=== PATIENT | male | born 1945 | race Caucasian/White ===

== ENCOUNTER 2019-01-08 07:39 | Day surgery (SDC) | payer BC, OTHER ==
[~2019-01-08] VITALS: Ht 160 cm; Wt 80.3 kg
[2019-01-08 07:30] VITALS: BP 125/83
[~2019-01-08 07:39] MED LIST: AMIO200T40 PO; APIX2.5T PO; ASPI-1071 PO; ATOR20TA PO; CARV-50 PO; FOLI0.8T19 PO; FOLI1TAB16 PO; HYDR-4383 PO; LIDOcaine 1% 30ml preserv. free vial IJ STA; NITR0.4T51 SL
[2019-01-08 08:00] VITALS: BP 130/85
[2019-01-08 09:00] VITALS: BP 130/85
[2019-01-08 09:05] VITALS: BP 125/84
[2019-01-08] MEDS ORDERED: AMIO200T40 PO (09:11)
[2019-01-08] MEDS ORDERED: APIX2.5T PO (09:14)
[2019-01-08 09:15] VITALS: BP 126/83
[2019-01-08] MEDS ORDERED: ASPI-1265 PO (09:15)
[2019-01-08] MEDS ORDERED: CARV6.252 PO (09:18)
[2019-01-08 09:30] VITALS: BP 125/80
[2019-01-08] MEDS ORDERED: FOLI1TAB16 PO (11:55)
[2019-01-08] MEDS ORDERED: PRAV80TA3 PO (11:56)
[2019-01-08] MEDS ORDERED: FURO40TA4 PO (11:57)
[2019-01-08] MEDS ORDERED: VIT1TABL48 PO (11:59)
== END 2019-01-08 09:45 ==
LOC: SSTAY O 07:39
PROVIDERS: ATTEND Radiology Diagnostic Radiology
DX: Z45.2 Encounter for adjustment and management of vascular access device (principal); I25.10 Atherosclerotic heart disease of native coronary artery without angina pectoris; Z79.899 Other long term (current) drug therapy; Z79.82 Long term (current) use of aspirin
CPT/HCPCS: 36589; J2001

== ENCOUNTER 2019-05-04 10:33 | Inpatient (IN) | payer MEDICARE, BC ==
[2019-05-04] VITALS (11 sets, daily range): BP systolic 88–159; BP diastolic 60–113
[~2019-05-04] VITALS: Ht 172.7 cm; Wt 96.3 kg
[~2019-05-04 10:33] MED LIST changes: -AMIO200T40 PO; +AMIO200T61 PO; -ASPI-1071 PO; +ASPI-1265 PO; -ATOR20TA PO; -CARV-50 PO; +CARV6.252 PO; -FOLI0.8T19 PO; +FURO40TA4 PO; -HYDR-4383 PO; -LIDOcaine 1% 30ml preserv. free vial IJ STA; -NITR0.4T51 SL; +PRAV80TA3 PO; +VIT1TABL48 PO
[2019-05-04 11:22] LABS: BASOPHILS % (AUTO) 0.2 % (0-1); EOSINOPHILS # (AUTO) 0.1 X10'3 (0-0.9); HEMATOCRIT 35.2 % (42.0-52.0); HEMOGLOBIN 11.9 g/dl (14.0-17.9); LYMPHOCYTES # (AUTO) 0.4 X10'3 (1.1-4.8); LYMPHOCYTES % (AUTO) 5.5 % (21-51); MEAN CORPUSCULAR HEMOGLOBIN 30.8 PG (27.0-31.0); MEAN CORPUSCULAR HGB CONC 33.8 g/dL (33.0-36.5); MEAN CORPUSCULAR VOLUME 91.1 FL (78-98); MEAN PLATELET VOLUME 9.4 FL (7.4-10.4); MONOCYTES # (AUTO) 0.4 X10'3 (0-0.9); MONOCYTES % (AUTO) 6.1 % (2-12); NEUTROPHILS # (AUTO) 6.2 X10'3 (1.8-7.7); NEUTROPHILS % (AUTO) 87.2 % (42-75); PLATELET COUNT 65 X10'3 (140-440); RED BLOOD COUNT 3.86 X10'6 (4.70-6.10); RED CELL DISTRIBUTION WIDTH 13.4 % (11.5-14.5); WHITE BLOOD COUNT 7.1 X10'3 (4.5-11.0)
[2019-05-04 11:34] LABS: PARTIAL THROMBOPLASTIN TIME 39 SECONDS (22-32)
[2019-05-04 11:35] LABS: ALANINE AMINOTRANSFERASE 30 U/L (12-78); ALBUMIN 2.7 G/DL (3.4-5.0); ALBUMIN/GLOBULIN RATIO 0.6 (1.1-1.5); ALKALINE PHOSPHATASE 57 IU/L (46-116); ANION GAP 14 (8-16); ASPARTATE AMINO TRANSFERASE 25 U/L (10-37); BLOOD UREA NITROGEN 51 MG/DL (7-18); BUN/CREATININE RATIO 19.5 (5.4-32.0); CHLORIDE 102 MMOL/L (99-107); CREATININE 2.61 MG/DL (0.60-1.10); GLUCOSE 123 MG/DL (70-104); POTASSIUM 3.6 MMOL/L (3.5-5.1); SODIUM 137 MMOL/L (135-145); TOTAL CARBON DIOXIDE 21.1 MMOL/L (24-32); TOTAL PROTEIN 7.1 G/DL (6.4-8.2); eGFR 24 ML/MIN
[2019-05-04 12:01] LABS: CLARITY,URINE CLOUDY (Clear); COLOR,URINE YELLOW (Yellow); GLUCOSE, URINE NEGATIVE (Neg); KETONES,URINE NEGATIVE (Neg); LEUKOCYTE ESTERASE ,URINE MODERATE (Neg); NITRITES, URINE POSITIVE (Neg); OCCULT BLOOD,URINE LARGE (Neg); PROTEIN,URINE 100 mg/dl (Neg); UROBILINOGEN,URINE 0.2 E.U/dL (0.2-1.0)
[2019-05-04 12:04] LABS: UA COLLECTION TYPE CLN CATCH MIDSTREAM
[2019-05-04 12:10] LABS: SQUAMOUS EPITHELIAL CELL,UR FEW /LPF (FEW); WBC,URINE TNTC /HPF (0-4)
[2019-05-04 12:11] LABS: BACTERIA,URINE 3+ /HPF (Neg)
--- NOTE | 2019-05-04 12:21 | NUR ---
PT IS IN BED , FLUSHED IV, NS 1L GIVEN DONE FROM EMS, HE IS STABLE, GTTING RESTLESS
[2019-05-04] MEDS ORDERED: CefTRIAXone/D5W-Rocephin 1gm 50 ML IV ONE (12:35)
[2019-05-04] MEDS ORDERED: normal saline 1000ML IV soln IV ONE (12:40)
[2019-05-04] MEDS ORDERED: mag hydrox/Alum hydrox/simeth 30ml oral suspension PO PRN (12:45)
[2019-05-04] MEDS ORDERED: magnesium hydroxide 30ml (MOM) UD suspension PO PRN (12:45)
[2019-05-04] MEDS ORDERED: acetaminophen 325mg tablet PO PRN (12:45)
[2019-05-04] MEDS ORDERED: ondansetron/PF 4mg/2ml inj IV PRN (12:45)
[2019-05-04] MEDS ORDERED: RIVA15TA PO (13:08)
[2019-05-04] MEDS ORDERED: SERT100T PO (13:08)
[2019-05-04] MEDS ORDERED: POTA-82 PO (13:08)
[2019-05-04] MEDS ORDERED: LISI10TA4 PO (13:08)
[2019-05-04] MEDS: normal saline 1000ml 1,000 ML IV SCH ×2 (14:26→21:08)
[2019-05-04 14:34] LABS: URINE AMPHETAMINE SCREEN NEGATIVE (Neg); URINE BARBITUATE SCREEN NEGATIVE (Neg); URINE BENZODIAZEPINES SCREEN NEGATIVE (Neg); URINE CANNABINOID SCREEN NEGATIVE (Neg); URINE COCAINE SCREEN NEGATIVE (Neg); URINE METHADONE SCREEN NEGATIVE (Neg); URINE OPIATE SCREEN NEGATIVE (Neg); URINE PHENCYCLIDINE SCREEN NEGATIVE (Neg)
--- NOTE | 2019-05-04 15:01 | NUR ---
Received report from ED by Abeba ROGERS.
--- NOTE | 2019-05-04 16:24 | NUR ---
patient arrived to unit confused, c/o of feeling cold, shallow respiration. V/S 192/122, temp 100.5, HR 117 A fib, resp 24. Dr Hunt notified, new orders to transfer pt to PCU with Paradise diaz. Nursing Ct Manager called, charge nurse aware, awaiting for room at PCU.
[2019-05-04] MEDS ORDERED: sevoflurane 250ml liquid IH ONE (16:30)
[2019-05-04] MEDS ORDERED: diltiazem-NS 100mg/100ml 125 ML IV SCH (16:30)
--- NOTE | 2019-05-04 17:12 | NUR ---
Patient report given to Nic ROGERS at [facility]
[2019-05-04] MEDS: diltiazem-NS 100mg/100ml 100 ML IV SCH (17:43)
--- NOTE | 2019-05-04 17:52 | NUR ---
Patient arrived tp PCU at 1725. Patient was transferred to bed and RN skin chaeck was done. Bedside monitoring initiated, medications in process per MD order. Will continue to monitor
--- NOTE | 2019-05-04 18:41 | NUR ---
Problems reprioritized. Patient report given, questions answered & plan of care reviewed with Dotty ROGERS.
--- NOTE | 2019-05-04 18:48 | NUR ---
[place]rient[place] documentation: I have reviewed and agree with interventions, assessments performed and documented by Carmina ROGERS. [place] Medication Administration: For this medication-pass time frame, medication were reviewed, dispensed, administered and documented per hospital policy by Carmina ROGERS.
[2019-05-04] MEDS: heparin, porcine 5000 units/ml vial SQ SCH (20:00)
[2019-05-04] MEDS ORDERED: amiodarone 200mg tablet PO SCH (21:00)
--- NOTE | 2019-05-04 22:52 | NUR ---
Heparin @05/04 was held due to history and physical MD noting to hold anticoags because of thrombocytopenia secondary to sepsis.
--- NOTE | 2019-05-04 22:52 | NUR ---
Patient in room PCU 3027. I have received report from KEN De La Rosa and had the opportunity to ask questions and assume patient care.
[2019-05-05] VITALS (22 sets, daily range): BP systolic 97–157; BP diastolic 38–102
[2019-05-05] MEDS: metroNIDAZOLE-Flagyl 500mg/NS 100 ML IV SCH ×3 (02:10→20:20)
--- NOTE | 2019-05-05 03:34 | NUR ---
MD was called and notified about positive blood culture of gram negative rods from aerobic bottles that were drawn on 05/04.
[2019-05-05 05:21] LABS: ALBUMIN 2.2 G/DL (3.4-5.0); ANION GAP 11 (8-16); BLOOD UREA NITROGEN 50 MG/DL (7-18); CALCIUM 8.5 MG/DL (8.5-10.1); CHLORIDE 108 MMOL/L (99-107); GLUCOSE 127 MG/DL (70-104); POTASSIUM 3.7 MMOL/L (3.5-5.1); SODIUM 142 MMOL/L (135-145); TOTAL CARBON DIOXIDE 22.9 MMOL/L (24-32); eGFR 25 ML/MIN
[2019-05-05 06:28] LABS: BASOPHILS % (AUTO) 0.1 % (0-1); EOSINOPHILS # (AUTO) 0.1 X10'3 (0-0.9); EOSINOPHILS % (AUTO) 1.7 % (0-6); HEMATOCRIT 30.7 % (42.0-52.0); HEMOGLOBIN 10.5 g/dl (14.0-17.9); LYMPHOCYTES # (AUTO) 0.5 X10'3 (1.1-4.8); LYMPHOCYTES % (AUTO) 6.6 % (21-51); MEAN CORPUSCULAR HEMOGLOBIN 31.1 PG (27.0-31.0); MEAN CORPUSCULAR HGB CONC 34.2 g/dL (33.0-36.5); MEAN PLATELET VOLUME 9.7 FL (7.4-10.4); MONOCYTES # (AUTO) 0.5 X10'3 (0-0.9); MONOCYTES % (AUTO) 7.3 % (2-12); NEUTROPHILS # (AUTO) 6.4 X10'3 (1.8-7.7); NEUTROPHILS % (AUTO) 84.3 % (42-75); RED BLOOD COUNT 3.37 X10'6 (4.70-6.10); RED CELL DISTRIBUTION WIDTH 13.6 % (11.5-14.5); WHITE BLOOD COUNT 7.5 X10'3 (4.5-11.0)
[2019-05-05 06:30] LABS: PLATELET COUNT 50 X10'3 (140-440)
--- NOTE | 2019-05-05 06:41 | NUR ---
Patient in room [place] [id number]. I have received report from and had the opportunity to ask questions and assume patient care. Addendum: 05/05/19 at 0642 by Carmina Raman RN Patient in room [place] [address]. I have received report from Dotty and had the opportunity to ask questions and assume patient care.
[2019-05-05] MEDS: heparin, porcine 5000 units/ml vial SQ SCH ×2 (06:42→20:00)
--- NOTE | 2019-05-05 06:49 | NUR ---
Problems reprioritized. Patient report given, questions answered & plan of care reviewed with Estrella ROGERS and Carmina ROGERS.
--- NOTE | 2019-05-05 07:24 | NUR ---
Rm [id number], Leonard. Does patient need to be NPO for CT this am. Please call. Thank you.
[2019-05-05] MEDS: CefTRIAXone 2gm/D5W 50ml 50 ML IV SCH (08:02)
[2019-05-05] MEDS: atorvastatin 20mg tablet PO SCH (08:02)
[2019-05-05] MEDS: folic acid 1mg tablet PO SCH (08:02)
[2019-05-05] MEDS: potassium chloride 10mEq ER tablet PO SCH (08:03)
[2019-05-05] MEDS: normal saline 1000ml 1,000 ML IV SCH ×2 (08:03→20:20)
[2019-05-05] MEDS: sertraline 50mg tablet PO SCH (08:03)
[2019-05-05] MEDS: diltiazem-NS 100mg/100ml 100 ML IV SCH (10:57)
[2019-05-05] MEDS ORDERED: AMIO200T27 PO (11:20)
[2019-05-05] MEDS ORDERED: CARV6.252 PO (11:20)
[2019-05-05] MEDS: carVEDilol 3.125mg tablet PO SCH ×2 (12:21→20:37)
--- NOTE | 2019-05-05 13:42 | NUR ---
Paged Dr. Hunt regarding blood culture lab results PAGER ID: [phone] MESSAGE: [id number] - Emmanuel: JAMES: Two anaerobic bottles tested positive for gram negative rods, thanks! Carmina [phone]
[2019-05-05] MEDS ORDERED: iohexol 300 MG/1 ML 10ml vial ONE (15:53)
[2019-05-05] MEDS ORDERED: iohexol 300 MG/1 ML 50ml polymer ONE (15:54)
[2019-05-05] MEDS ORDERED: ringers solution, lacted 1,000 ML IV SCH (16:02)
[2019-05-05] MEDS ORDERED: meperidine/PF 25mg/ml syringe IV PRN ×3 (16:05)
[2019-05-05] MEDS ORDERED: ondansetron/PF 4mg/2ml inj IV PRN (16:05)
[2019-05-05] MEDS ORDERED: morphine 4 MG/ML inj SYRINge IV PRN ×2 (16:05)
[2019-05-05] MEDS ORDERED: proCHLORperazine 10 MG/2 ml inj IV PRN (16:05)
[2019-05-05] MEDS ORDERED: fentaNYL/PF 50MCG/1 ML 2ML syringe ONE (16:25)
[2019-05-05] MEDS ORDERED: propofol inj 20 ML IV ONE (16:26)
--- NOTE | 2019-05-05 17:11 | NUR ---
Received from OR via BED, accompanied by Anesthesiologist DR BURTON and report given by Anesthesiologist. PT DROWSY, NO S/S OF DISTRESS/DISCOMFORT. Addendum: 05/05/19 at 1727 by Lisette Booker RN Amended: Links added.
[2019-05-05] MEDS ORDERED: levoFLOXACIN-Levaquin 500mg/D5 100 ML IV ONE (17:40)
--- NOTE | 2019-05-05 18:01 | NUR ---
Report called to receiving nurse. Transferred via BED, NO Belongings, RECEIVING RN AT BEDSIDE TO RECEIVE PT, BLL, CALL LIGHT GIVEN, SIDE RAILS UP X2. Special Issues communicated to receiving nurse. YES. Addendum: 05/05/19 at 1812 by Lisette Bokoer RN Amended: Links added.
--- NOTE | 2019-05-05 18:29 | NUR ---
Patient in room PCU 3027. I have received report from Leslye ROGERS and had the opportunity to ask questions and assume patient care.
--- NOTE | 2019-05-05 18:30 | NUR ---
Problems reprioritized. Patient report given, questions answered & plan of care reviewed with KEN Storm.
--- NOTE | 2019-05-05 18:31 | NUR ---
[place] Medication Administration: For this medication-pass time frame, medication were reviewed, dispensed, administered and documented per hospital policy by Carmina ROGERS . [place]ee documentation: I have reviewed and agree with interventions, assessments performed and documented by Carmina ROGERS.
[2019-05-05] MEDS: lactobacillus rhamnosus 10,000 MMU CELLS/CAPSULE PO SCH (20:37)
[2019-05-05] MEDS: amiodarone 100mg tablet PO SCH (20:37)
--- NOTE | 2019-05-05 23:22 | NUR ---
MD called and notified about patient's red finger tips after the left ureter stent procedure today. Recovery said the red finger tips could be caused from sepsis and a sepsis emboli could possibly lodge and cause necrosis in the fingers. Will monitor closely. Cap refill is quick <2secs.
[2019-05-06] VITALS (15 sets, daily range): BP systolic 109–144; BP diastolic 61–82
[2019-05-06] MEDS: normal saline 1000ml 1,000 ML IV SCH (04:45)
[2019-05-06 05:39] LABS: BASOPHILS % (AUTO) 0.2 % (0-1); EOSINOPHILS % (AUTO) 0.4 % (0-6); HEMATOCRIT 28.5 % (42.0-52.0); HEMOGLOBIN 9.6 g/dl (14.0-17.9); LYMPHOCYTES # (AUTO) 0.6 X10'3 (1.1-4.8); LYMPHOCYTES % (AUTO) 10.7 % (21-51); MEAN CORPUSCULAR HEMOGLOBIN 30.8 PG (27.0-31.0); MEAN CORPUSCULAR HGB CONC 33.8 g/dL (33.0-36.5); MEAN CORPUSCULAR VOLUME 91.2 FL (78-98); MEAN PLATELET VOLUME 10.2 FL (7.4-10.4); MONOCYTES # (AUTO) 0.4 X10'3 (0-0.9); MONOCYTES % (AUTO) 6.7 % (2-12); NEUTROPHILS # (AUTO) 4.9 X10'3 (1.8-7.7); RED BLOOD COUNT 3.13 X10'6 (4.70-6.10); RED CELL DISTRIBUTION WIDTH 13.9 % (11.5-14.5)
[2019-05-06 05:46] LABS: ALBUMIN 1.9 G/DL (3.4-5.0); ANION GAP 10 (8-16); BLOOD UREA NITROGEN 57 MG/DL (7-18); BUN/CREATININE RATIO 27.4 (5.4-32.0); CALCIUM 8.4 MG/DL (8.5-10.1); CHLORIDE 107 MMOL/L (99-107); CREATININE 2.08 MG/DL (0.60-1.10); GLUCOSE 107 MG/DL (70-104); POTASSIUM 3.3 MMOL/L (3.5-5.1); SODIUM 140 MMOL/L (135-145); TOTAL CARBON DIOXIDE 22.8 MMOL/L (24-32); eGFR 31 ML/MIN
--- NOTE | 2019-05-06 05:48 | NUR ---
05/06/19 0550: called and notified about some bright red blood coming out of urine into the condom catheter. Blood is possibly coming out in stool as well since the dry flow was wet with bright red blood. The area covered was approximately the size covering the bottom of his buttocks. said to report to day hospitalist. Will tell AM nurse to pass it on.
[2019-05-06 05:53] LABS: PLATELET COUNT 42 X10'3 (140-440)
--- NOTE | 2019-05-06 06:33 | NUR ---
Problems reprioritized. Patient report given, questions answered & plan of care reviewed with Halley Osuna RN. She was notified about the blood coming out in urine and stool and of the critical platelet value.
--- NOTE | 2019-05-06 06:48 | NUR ---
Patient in room PCU 3027. I have received report from Dotty ROGERS and had the opportunity to ask questions and assume patient care. Was informed of platelet count of 42 at 0455, paged Dr Hunt regarding critical lab value. All patient's needs met at this time.
--- NOTE | 2019-05-06 06:49 | NUR ---
Paged Dr Hunt MESSAGE: Re: Rohan Valle Rm [id number], plt count was 42 at 0455. Thanks Halley [phone]
[2019-05-06] MEDS: heparin, porcine 5000 units/ml vial SQ SCH ×2 (08:00→20:00)
[2019-05-06] MEDS: atorvastatin 20mg tablet PO SCH (08:25)
[2019-05-06] MEDS: potassium chloride 10mEq ER tablet PO SCH (08:25)
[2019-05-06] MEDS: folic acid 1mg tablet PO SCH (08:25)
[2019-05-06] MEDS: sertraline 50mg tablet PO SCH (08:26)
[2019-05-06] MEDS: lactobacillus rhamnosus 10,000 MMU CELLS/CAPSULE PO SCH ×2 (08:26→20:09)
[2019-05-06] MEDS: CefTRIAXone 2gm/D5W 50ml 50 ML IV SCH (08:26)
[2019-05-06] MEDS: carVEDilol 3.125mg tablet PO SCH ×2 (08:26→20:10)
[2019-05-06] MEDS ORDERED: furosemide 40mg/4ml inj IV ONE ×2 (08:45→14:35)
--- NOTE | 2019-05-06 09:03 | NUR ---
Paged Dr Hunt PAGER ID: [phone] MESSAGE: Re Rohan Valle Rm [id number]. K+ 3.3, pt got 40meq PO, giving Lasix, can you please order K+ replace protocol? Thank you Halley [phone]
--- NOTE | 2019-05-06 09:17 | NUR ---
Paged Dr Hunt MESSAGE: Re: [id number] Rohan Valle, can you please sign the platelet consent? I will come to you. Thank you Halley [phone]
[2019-05-06] MEDS: metroNIDAZOLE-Flagyl 500mg/NS 100 ML IV SCH ×4 (09:22→23:19)
[2019-05-06] MEDS ORDERED: potassium CL 10mEq/100ml bag 100 ML IV PRN (12:30)
[2019-05-06] MEDS ORDERED: magnesium 4gm in 100ml NS 100 ML IV PRN (12:30)
[2019-05-06] MEDS ORDERED: potassium Cl 20 mEq SR tablet PO PRN (12:30)
[2019-05-06] MEDS ORDERED: magnesium Cl slow-release 64mg tablet PO PRN (12:30)
[2019-05-06] MEDS ORDERED: magnesium 2GM in 50ml NS 50 ML IV PRN (12:30)
[2019-05-06] MEDS: potassium Cl 20 mEq SR tablet PO PRN ×3 (12:38→20:09)
--- NOTE | 2019-05-06 12:46 | NUR ---
I held the lasix due to his potassium being 3.3.
--- NOTE | 2019-05-06 14:12 | NUR ---
Patient tolerated platelet transfusion with no complications.
--- NOTE | 2019-05-06 14:41 | NUR ---
Dr. Hunt at the nurses station where primary RN Halley has informed him that she held the Lasix because the patients K+ is 3.3. Dr. Hunt has given new orders: Give the Lasix and replace electrolytes per protocol. Will place a new order for Lasix 40mg PIV once and place orders for electrolyte replacement per protocol. Primary RN to dispense meds and monitor the patient.
--- NOTE | 2019-05-06 18:30 | NUR ---
Patient in room PCU 3027. I have received report from Halley ROGERS and had the opportunity to ask questions and assume patient care.
--- NOTE | 2019-05-06 18:30 | NUR ---
Problems reprioritized. Patient report given, questions answered & plan of care reviewed with Jacqueline ROGERS. All patient's needs met at this time.
[2019-05-06] MEDS: amiodarone 100mg tablet PO SCH (20:09)
[2019-05-07] VITALS (7 sets, daily range): BP systolic 113–168; BP diastolic 85–104
[2019-05-07 05:59] LABS: ALBUMIN 2.3 G/DL (3.4-5.0); ANION GAP 13 (8-16); BLOOD UREA NITROGEN 50 MG/DL (7-18); BUN/CREATININE RATIO 25.1 (5.4-32.0); CALCIUM 8.6 MG/DL (8.5-10.1); CHLORIDE 106 MMOL/L (99-107); CREATININE 1.99 MG/DL (0.60-1.10); GLUCOSE 93 MG/DL (70-104); POTASSIUM 3.3 MMOL/L (3.5-5.1); SODIUM 141 MMOL/L (135-145); TOTAL CARBON DIOXIDE 21.6 MMOL/L (24-32); eGFR 33 ML/MIN
[2019-05-07 06:00] LABS: BASOPHILS % (AUTO) 0.1 % (0-1); EOSINOPHILS # (AUTO) 0.1 X10'3 (0-0.9); EOSINOPHILS % (AUTO) 0.8 % (0-6); HEMOGLOBIN 10.9 g/dl (14.0-17.9); LYMPHOCYTES # (AUTO) 0.6 X10'3 (1.1-4.8); LYMPHOCYTES % (AUTO) 6.9 % (21-51); MEAN CORPUSCULAR HEMOGLOBIN 30.5 PG (27.0-31.0); MEAN CORPUSCULAR VOLUME 89.6 FL (78-98); MONOCYTES # (AUTO) 0.5 X10'3 (0-0.9); MONOCYTES % (AUTO) 6.3 % (2-12); NEUTROPHILS # (AUTO) 7.1 X10'3 (1.8-7.7); NEUTROPHILS % (AUTO) 85.9 % (42-75); PLATELET COUNT 88 X10'3 (140-440); RED BLOOD COUNT 3.57 X10'6 (4.70-6.10); RED CELL DISTRIBUTION WIDTH 13.9 % (11.5-14.5); WHITE BLOOD COUNT 8.3 X10'3 (4.5-11.0)
--- NOTE | 2019-05-07 06:16 | NUR ---
Problems reprioritized. Patient report given, questions answered & plan of care reviewed with Kumar ROGERS.
--- NOTE | 2019-05-07 06:27 | NUR ---
Patient in room PCU 3027. I have received report from KEN Phillips and had the opportunity to ask questions and assume patient care.
[2019-05-07] MEDS: folic acid 1mg tablet PO SCH (07:43)
[2019-05-07] MEDS: carVEDilol 3.125mg tablet PO SCH ×2 (07:44→19:25)
[2019-05-07] MEDS: potassium chloride 10mEq ER tablet PO SCH (07:44)
[2019-05-07] MEDS: lactobacillus rhamnosus 10,000 MMU CELLS/CAPSULE PO SCH ×2 (07:44→19:25)
[2019-05-07] MEDS: sertraline 50mg tablet PO SCH (07:44)
[2019-05-07] MEDS: atorvastatin 20mg tablet PO SCH (07:44)
[2019-05-07] MEDS: CefTRIAXone 2gm/D5W 50ml 50 ML IV SCH (07:45)
[2019-05-07] MEDS: metroNIDAZOLE-Flagyl 500mg/NS 100 ML IV SCH (08:29)
--- NOTE | 2019-05-07 10:55 | NUR ---
PAGER ID: [phone] MESSAGE: [phone] Rohan Valle do you want the heparin given or held. Received platelet transfusion yesterday plt up to 88 from 42. KEN Heath Ext [phone]
[2019-05-07] MEDS: heparin, porcine 5000 units/ml vial SQ SCH ×2 (11:39→19:26)
--- NOTE | 2019-05-07 18:13 | NUR ---
Problems reprioritized. Patient report given, questions answered & plan of care reviewed with KEN Matamoros.
[2019-05-07] MEDS: potassium Cl 20 mEq SR tablet PO PRN (19:25)
[2019-05-07] MEDS ORDERED: normal saline 1000ml 1,000 ML IVB ONE (20:04)
[2019-05-07] MEDS ORDERED: diltiazem 5mg/ml 5ml inj. IV ONE (20:05)
--- NOTE | 2019-05-07 20:05 | NUR ---
Patient's HR sustaining 130s-140s while resting in bed. Patient's BP 141/99 and RR 28 with a temp of 101.1 axillary. Prescribed dose of PRN Tylenol given and call placed to Dr. De La Cruz. Received order for one time IVP of Cardizem 10mg and to give patient 1L bolus of NS even though he does have a history of CHF.
[2019-05-07] MEDS: amiodarone 100mg tablet PO SCH (21:23)
[2019-05-08] VITALS (23 sets, daily range): BP systolic 110–184; BP diastolic 78–114
--- NOTE | 2019-05-08 03:04 | NUR ---
Patient's HR sustaining in the 120s, current BP 144/78. Called Dr. De La Cruz and received order to place patient on Cardizem drip@5mg/hr
[2019-05-08] MEDS: diltiazem-NS 100mg/100ml 100 ML IV SCH ×2 (03:35→04:58)
--- NOTE | 2019-05-08 04:30 | NUR ---
Patient's HR remaining in the 120s despite starting on Cardizem drip. Called Dr. De La Cruz and received an order to give a 10mg IVP of Cardizem and to increase the drip to 10mg/hr
[2019-05-08] MEDS ORDERED: diltiazem 5mg/ml 5ml inj. IV ONE ×3 (04:55→23:20)
[2019-05-08 05:22] LABS: BASOPHILS % (AUTO) 0.1 % (0-1); EOSINOPHILS # (AUTO) 0.1 X10'3 (0-0.9); EOSINOPHILS % (AUTO) 1.5 % (0-6); HEMATOCRIT 30.9 % (42.0-52.0); HEMOGLOBIN 10.6 g/dl (14.0-17.9); LYMPHOCYTES # (AUTO) 0.7 X10'3 (1.1-4.8); LYMPHOCYTES % (AUTO) 7.8 % (21-51); MEAN CORPUSCULAR HEMOGLOBIN 30.5 PG (27.0-31.0); MEAN CORPUSCULAR HGB CONC 34.2 g/dL (33.0-36.5); MEAN CORPUSCULAR VOLUME 89.2 FL (78-98); MEAN PLATELET VOLUME 10.6 FL (7.4-10.4); MONOCYTES # (AUTO) 0.4 X10'3 (0-0.9); MONOCYTES % (AUTO) 4.5 % (2-12); NEUTROPHILS % (AUTO) 86.1 % (42-75); PLATELET COUNT 90 X10'3 (140-440); RED BLOOD COUNT 3.47 X10'6 (4.70-6.10); RED CELL DISTRIBUTION WIDTH 13.8 % (11.5-14.5); WHITE BLOOD COUNT 9.3 X10'3 (4.5-11.0)
[2019-05-08 06:16] LABS: LARGE PLATELETS FEW; PLATELET ESTIMATE DECREASED
[2019-05-08 06:17] LABS: ALBUMIN 2.2 G/DL (3.4-5.0); ANION GAP 13 (8-16); BLOOD UREA NITROGEN 41 MG/DL (7-18); CALCIUM 8.6 MG/DL (8.5-10.1); CHLORIDE 107 MMOL/L (99-107); CREATININE 1.71 MG/DL (0.60-1.10); GLUCOSE 93 MG/DL (70-104); POTASSIUM 3.4 MMOL/L (3.5-5.1); SODIUM 140 MMOL/L (135-145); TOTAL CARBON DIOXIDE 20.5 MMOL/L (24-32); eGFR 39 ML/MIN
--- NOTE | 2019-05-08 06:32 | NUR ---
Problems reprioritized. Patient report given, questions answered & plan of care reviewed with Celia ROGERS.
[2019-05-08] MEDS: heparin, porcine 5000 units/ml vial SQ SCH (08:00)
[2019-05-08] MEDS: CefTRIAXone 2gm/D5W 50ml 50 ML IV SCH (08:23)
[2019-05-08] MEDS: atorvastatin 20mg tablet PO SCH (08:23)
[2019-05-08] MEDS: potassium chloride 10mEq ER tablet PO SCH (08:24)
[2019-05-08] MEDS: folic acid 1mg tablet PO SCH (08:24)
[2019-05-08] MEDS: lactobacillus rhamnosus 10,000 MMU CELLS/CAPSULE PO SCH ×2 (08:24→20:45)
[2019-05-08] MEDS: carVEDilol 3.125mg tablet PO SCH (08:24)
[2019-05-08] MEDS: sertraline 50mg tablet PO SCH (08:25)
[2019-05-08] MEDS ORDERED: carvedilol 6.25mg tablet PO ONE (09:05)
--- NOTE | 2019-05-08 15:36 | NUR ---
Initial: Pt admit with sepsis secondary to UTI s/p ureteral stent placement. Blood cultures positive for E.coli per MD notes. Pt currently on a heart healthy diet documented with average 50% PO intake up to 75% at breakfast and lunch today. Pt seen at bedside provided with written and verbal protein education and alternative heart healthy menu to broaden food options. Pt agrees to yogurt QD at lunch, d/w dietary. Pt endorses a good appetite and denies food allergies, difficulty chewing/swallowing, or constipation/diarrhea. [facility] 05/07. Will continue to follow. Recommendations: 1) Continue heart healthy diet 2) Yogurt QD at lunch 3) Encourage PO intake; honor food preferences 4) Bowel care 5) Wt per rx Addendum: 05/08/19 at [address] Amended: Links added.
--- NOTE | 2019-05-08 15:40 | NUR ---
Recieved Pt. Placed into bed, PICC line R Upper arm patient, Alert and appropriate, WICC placed for comfort. HOB 30 degrees.
--- NOTE | 2019-05-08 15:51 | NUR ---
Problems reprioritized. Patient report given, questions answered & plan of care reviewed with Davonte ROGERS.
--- NOTE | 2019-05-08 18:20 | NUR ---
Problems reprioritized. Patient report given, questions answered & plan of care reviewed with Shiloh ROGERS.
--- NOTE | 2019-05-08 18:39 | NUR ---
Paged Dr. Hunt because patient's HR has been sustaining 130s-140s for at least 2 hours since the Cardizem drip had been d/c'd. Latest BP is 139/110. MD called back and stated he wants patient's Coreg given for the HR. Informed MD that last night the Coreg had no effect on the HR to which MD stated that the patient became hypotensive on the drip so he doesn't want him back on it. Informed MD that patient never was hypotensive last night and was instead given a fluid bolus for high HR, fever, & high RR with known infection. MD insisted that patient should never have been given fluids and he instead insists that the Coreg be the only thing given. Will give Coreg early and continue to monitor
[2019-05-08] MEDS: carVEDilol 12.5mg tablet PO SCH (19:00)
[2019-05-08] MEDS: potassium Cl 20 mEq SR tablet PO PRN (19:00)
[2019-05-08] MEDS ORDERED: carVEDilol 12.5mg tablet PO SCH (20:00)
[2019-05-08] MEDS: amiodarone 100mg tablet PO SCH (20:45)
[2019-05-08] MEDS: rivaroxaban 15mg tablet PO SCH (20:46)
--- NOTE | 2019-05-08 22:00 | NUR ---
Patient's HR remains in the 130s despite giving PO Coreg. Current BP 142/94. Called Dr. De La Cruz and received order for a one time 10mg IVP of Cardizem
--- NOTE | 2019-05-08 23:15 | NUR ---
Patient's HR remains in the 130s despite IVP of Cardizem. BP is 148/95. Called Dr. De La Cruz and received order to repeat Cardizem IVP bolus of 10mg and then start patient on Cardizem drip @ 5mg/hr
[2019-05-08] MEDS ORDERED: diltiazem-NS 100mg/100ml 100 ML IV SCH (23:20)
[2019-05-09] VITALS (30 sets, daily range): BP systolic 95–164; BP diastolic 66–99
[2019-05-09] MEDS ORDERED: diltiazem 5mg/ml 5ml inj. IV ONE (01:00)
[2019-05-09] MEDS: diltiazem-NS 100mg/100ml 100 ML IV SCH ×3 (01:07→17:54)
--- NOTE | 2019-05-09 01:10 | NUR ---
Spoke to Dr. De La Cruz because patient's HR remains 120s. BP currently 151/88. Received order to give another IVP bolus of Cardizem 10mg and increase the drip to 10mg/hr
[2019-05-09 05:25] LABS: BASOPHILS % (AUTO) 0.1 % (0-1); EOSINOPHILS # (AUTO) 0.2 X10'3 (0-0.9); EOSINOPHILS % (AUTO) 2.2 % (0-6); HEMOGLOBIN 9.9 g/dl (14.0-17.9); LYMPHOCYTES # (AUTO) 0.9 X10'3 (1.1-4.8); LYMPHOCYTES % (AUTO) 8.4 % (21-51); MEAN CORPUSCULAR HEMOGLOBIN 30.9 PG (27.0-31.0); MEAN CORPUSCULAR HGB CONC 34.3 g/dL (33.0-36.5); MEAN CORPUSCULAR VOLUME 90.2 FL (78-98); MEAN PLATELET VOLUME 10.6 FL (7.4-10.4); MONOCYTES # (AUTO) 0.4 X10'3 (0-0.9); MONOCYTES % (AUTO) 4.1 % (2-12); NEUTROPHILS # (AUTO) 8.8 X10'3 (1.8-7.7); NEUTROPHILS % (AUTO) 85.2 % (42-75); PLATELET COUNT 99 X10'3 (140-440); RED BLOOD COUNT 3.21 X10'6 (4.70-6.10); RED CELL DISTRIBUTION WIDTH 13.9 % (11.5-14.5); WHITE BLOOD COUNT 10.4 X10'3 (4.5-11.0)
[2019-05-09 05:47] LABS: ALBUMIN 2.2 G/DL (3.4-5.0); ANION GAP 10 (8-16); BLOOD UREA NITROGEN 35 MG/DL (7-18); CALCIUM 8.5 MG/DL (8.5-10.1); CHLORIDE 107 MMOL/L (99-107); CREATININE 1.52 MG/DL (0.60-1.10); GLUCOSE 98 MG/DL (70-104); POTASSIUM 3.5 MMOL/L (3.5-5.1); SODIUM 139 MMOL/L (135-145); TOTAL CARBON DIOXIDE 21.6 MMOL/L (24-32); eGFR 45 ML/MIN
--- NOTE | 2019-05-09 06:04 | NUR ---
Problems reprioritized. Patient report given, questions answered & plan of care reviewed with Diana ROGERS.
--- NOTE | 2019-05-09 06:06 | NUR ---
Patient in room PCU 3027. I have received report from Shiloh ROGERS and had the opportunity to ask questions and assume patient care.
[2019-05-09] MEDS: carVEDilol 12.5mg tablet PO SCH ×2 (07:13→20:49)
[2019-05-09] MEDS: lactobacillus rhamnosus 10,000 MMU CELLS/CAPSULE PO SCH ×2 (07:13→20:49)
[2019-05-09] MEDS: sertraline 50mg tablet PO SCH (07:13)
[2019-05-09] MEDS: potassium chloride 10mEq ER tablet PO SCH (07:13)
[2019-05-09] MEDS: atorvastatin 20mg tablet PO SCH (07:13)
[2019-05-09] MEDS: folic acid 1mg tablet PO SCH (07:13)
[2019-05-09] MEDS: CefTRIAXone 2gm/D5W 50ml 50 ML IV SCH (07:14)
[2019-05-09] MEDS ORDERED: rivaroxaban 15mg tablet PO SCH (07:30)
--- NOTE | 2019-05-09 11:06 | NUR ---
Problems reprioritized. Patient report given, questions answered & plan of care reviewed with Davonte ROGERS.
--- NOTE | 2019-05-09 18:00 | NUR ---
Patient in room PCU 3027. I have received report from Davonte ROGERS and had the opportunity to ask questions and assume patient care.
[2019-05-09] MEDS: amiodarone 100mg tablet PO SCH (20:49)
[2019-05-09] MEDS: rivaroxaban 15mg tablet PO SCH (20:50)
[2019-05-10] VITALS (9 sets, daily range): BP systolic 106–146; BP diastolic 56–89
--- NOTE | 2019-05-10 02:00 | NUR ---
Patient in room PCU 3027. I have received report from Kaye ROGERS and had the opportunity to ask questions and assume patient care.
--- NOTE | 2019-05-10 03:37 | NUR ---
SINUS RHYTHM Patient converted to sinus rhythm, MD De La Cruz notified, Cardizem discontinued per md order, will continue to monitor.
--- NOTE | 2019-05-10 06:15 | NUR ---
Patient in room PCU 3027. I have received report from KEN Ochoa and had the opportunity to ask questions and assume patient care.
--- NOTE | 2019-05-10 07:17 | NUR ---
Problems reprioritized. Patient report given, questions answered & plan of care reviewed with Estrella ROGERS.
[2019-05-10] MEDS: carVEDilol 12.5mg tablet PO SCH (08:12)
[2019-05-10] MEDS: CefTRIAXone 2gm/D5W 50ml 50 ML IV SCH (08:12)
[2019-05-10] MEDS: folic acid 1mg tablet PO SCH (08:12)
[2019-05-10] MEDS: atorvastatin 20mg tablet PO SCH (08:13)
[2019-05-10] MEDS: sertraline 50mg tablet PO SCH (08:13)
[2019-05-10] MEDS: lactobacillus rhamnosus 10,000 MMU CELLS/CAPSULE PO SCH (08:13)
[2019-05-10] MEDS: potassium chloride 10mEq ER tablet PO SCH (08:13)
--- NOTE | 2019-05-10 12:25 | NUR ---
Called report to [facility]. Report given to ANIRUDH Hackett. all questions answered.
--- NOTE | 2019-05-10 13:06 | NUR ---
Patient picked up by pete and transported off unit via wheel chair.
== END 2019-05-10 13:05 | DRG 853 ==
LOC: ER 10:33 → ED HOLD 12:53 → PCU 3S 17:25
PROVIDERS: ADMIT Family Medicine; ATTEND Hospitalist
PROC: BT1F1ZZ Fluoroscopy of Left Kidney, Ureter and Bladder using Low Osmolar Contrast (ICD-10-PCS; 2019-05-05)
PROC: 0T778DZ Dilation of Left Ureter with Intraluminal Device, Via Natural or Artificial Opening Endoscopic (ICD-10-PCS; principal; 2019-05-05 16:23)
PROC: 30233R1 Transfusion of Nonautologous Platelets into Peripheral Vein, Percutaneous Approach (ICD-10-PCS; 2019-05-06)
DX: A41.9 Sepsis, unspecified organism (principal); G93.41 Metabolic encephalopathy; I13.0 Hypertensive heart and chronic kidney disease with heart failure and stage 1 through stage 4 chronic kidney disease, or unspecified chronic kidney disease; N13.6 Pyonephrosis; I50.22 Chronic systolic (congestive) heart failure; B96.20 Unspecified Escherichia coli [E. coli] as the cause of diseases classified elsewhere; D69.59 Other secondary thrombocytopenia; E87.6 Hypokalemia; I25.10 Atherosclerotic heart disease of native coronary artery without angina pectoris; I48.91 Unspecified atrial fibrillation; N18.9 Chronic kidney disease, unspecified; N40.0 Benign prostatic hyperplasia without lower urinary tract symptoms; I95.9 Hypotension, unspecified
CPT/HCPCS: 36415; 36430; 71045; 74176; 76000; 76937; 80048; 80053; 80305; 81001; 83605; 84132; 84145; 85025; 85610; 85730; 86885; 87040; 87070; 87075; 87077; 87081; 87088; 87186; 97110; 97116; 97163; 97530; 99285; A4618; C1758; C1769; C2617; G0378; J0696; J1644; J1940; J1956; J2704; J3010; J3490; J7030; J7120; P9035; Q9967

== ENCOUNTER 2020-03-08 07:05 | Day surgery (SDC) | payer MEDICARE, BC ==
[2020-03-07 09:50] LABS: BASOPHILS % (AUTO) 0.5 % (0-1); EOSINOPHILS # (AUTO) 0.8 X10'3 (0-0.9); EOSINOPHILS % (AUTO) 8.9 % (0-6); HEMOGLOBIN 12.8 g/dl (14.0-17.9); LYMPHOCYTES # (AUTO) 1.5 X10'3 (1.1-4.8); LYMPHOCYTES % (AUTO) 16.1 % (21-51); MEAN CORPUSCULAR HEMOGLOBIN 29.6 PG (27.0-31.0); MEAN CORPUSCULAR HGB CONC 32.7 g/dL (33.0-36.5); MEAN CORPUSCULAR VOLUME 90.5 FL (78-98); MEAN PLATELET VOLUME 8.3 FL (7.4-10.4); MONOCYTES # (AUTO) 0.7 X10'3 (0-0.9); MONOCYTES % (AUTO) 7.2 % (2-12); NEUTROPHILS # (AUTO) 6.1 X10'3 (1.8-7.7); NEUTROPHILS % (AUTO) 67.3 % (42-75); PLATELET COUNT 243 X10'3 (140-440); RED BLOOD COUNT 4.32 X10'6 (4.70-6.10); RED CELL DISTRIBUTION WIDTH 14.6 % (11.5-14.5); WHITE BLOOD COUNT 9.1 X10'3 (4.5-11.0)
[2020-03-07 09:59] LABS: ANION GAP 8 (8-16); CALCIUM 9.1 MG/DL (8.5-10.1); CHLORIDE 103 MMOL/L (99-107); CREATININE 1.71 MG/DL (0.60-1.10); GLUCOSE 143 MG/DL (70-104); POTASSIUM 4.1 MMOL/L (3.5-5.1); SODIUM 137 MMOL/L (135-145); eGFR 39 ML/MIN
[2020-03-07 10:19] LABS: BLOOD UREA NITROGEN 26 MG/DL (7-18); BUN/CREATININE RATIO 15.2 (5.4-32.0)
[~2020-03-08] VITALS: Ht 167.6 cm; Wt 77.2 kg
[2020-03-08] VITALS (38 sets, daily range): BP systolic 75–140; BP diastolic 34–86
[~2020-03-08 07:05] MED LIST changes: +AMIO200T27 PO; -AMIO200T61 PO; -APIX2.5T PO; -ASPI-1265 PO; +LISI10TA4 PO; +POTA-82 PO; +RIVA15TA PO; +SERT100T PO; -VIT1TABL48 PO
[2020-03-08] MEDS ORDERED: atropine 0.1mg/ml 10ml syringe IV ONE (07:30)
[2020-03-08] MEDS ORDERED: MIDAZolam 1mg/ml 10ml vial IV ONE (07:30)
[2020-03-08] MEDS ORDERED: amiodarone 150mg/dext, iso-os 100 ML IV ONE (07:30)
[2020-03-08] MEDS ORDERED: morphine 10mg/ml inj. IV ONE (07:30)
[2020-03-08] MEDS ORDERED: diphenhydrAMINE 25mg capsule PO ONE (07:30)
[2020-03-08] MEDS ORDERED: LORazepam 0.5 MG tablet PO ONE (07:30)
[2020-03-08] MEDS ORDERED: PROP60TA19 PO (07:35)
--- NOTE | 2020-03-08 08:31 | NUR ---
Patient is alert and oriented, offered to reach out to his POA as I saw he has one, patient refused, and patient is answering questions appropriately.
--- NOTE | 2020-03-08 08:50 | NUR ---
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 santana notes that he has a POA. 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 I got consent by telephone from liset with kajal rn as well for a cardioversion today.
[2020-03-08] MEDS ORDERED: DOPamine 400mg/D5W 250ml 250 ML IV SCH ×2 (10:05→11:30)
--- NOTE | 2020-03-08 10:14 | NUR ---
Started dopamine at 5mcg/kg per md orders, called Dr. Garcia as patient has remained low blood pressures in the 70s-80s systolic map in the 50s. Heart rate in the 40s even after 1mg atropine. Patient is off and on awake, states he feels ok. TOV 5mcg/kg of dopamine per Dr. Garcia.
--- NOTE | 2020-03-08 11:30 | NUR ---
Called Dr. Garcia as nephew is wondering what time he will be picked up. Dr. Gracia stated over the phone to turn down the dopamine to 3mcg/kg and call back at 2pm and will reassess patient. patients ride cannot be off work until 5:30 now, will monitor patient while on dopamine and taper him down per md orders.
--- NOTE | 2020-03-08 14:41 | NUR ---
stopped dopamine drip TOV by dr. Garcia, vitals stable. On monitor.
== END 2020-03-08 16:30 | disposition home or self-care (01) ==
LOC: SSTAY O 07:05
PROVIDERS: ATTEND Internal Medicine Cardiovascular Disease
DX: I48.91 Unspecified atrial fibrillation (principal); I10 Essential (primary) hypertension; E78.5 Hyperlipidemia, unspecified
CPT/HCPCS: 36415; 80048; 85025; 92960; 93005; 94760; J0461; J1265; J2250; J2270

== ENCOUNTER 2020-03-23 06:59 | Outpatient (CLI) | payer MEDICARE, BC ==
[~2020-03-23] VITALS: Ht 170.2 cm; Wt 73.5 kg
[~2020-03-23 06:59] MED LIST changes: -CARV6.252 PO; +PROP60TA19 PO
[2020-03-23] MEDS ORDERED: albuterol 2.5 MG/3 ML nebule NEB PRN (07:50)
== END 2020-03-23 23:59 | disposition home or self-care (01) ==
LOC: RT 06:59
PROVIDERS: ATTEND Internal Medicine Cardiovascular Disease
DX: R06.02 Shortness of breath (principal)
CPT/HCPCS: 71046; 94060; 94727; 94729; 94760